=== PATIENT | female | born 1975 | race Caucasian/White ===

== ENCOUNTER 2024-11-22 20:36 | Emergency (ER) | payer MEDICAID, OTHER ==
[~2024-11-22] VITALS: Ht 165.1 cm; Wt 105.0 kg
[2024-11-22 20:42] VITALS: BP 152/98; PULSE 92; RESP 16; TEMP 37; O2SAT 95
[2024-11-22] MEDS ORDERED: BENZ200C52 MT (23:34)
[2024-11-22] MEDS ORDERED: NIRM1TAB8 PO (23:34)
== END 2024-11-22 23:49 | disposition home or self-care (01) ==
LOC: ER 20:36
DX: U07.1 COVID-19 (principal); F31.9 Bipolar disorder, unspecified
CPT/HCPCS: 71045; 87426; 99284